=== PATIENT | female | born 1940 | race Caucasian/White ===

== ENCOUNTER → 2017-01-13 | Outpatient (CLI) | payer OTHER ==
[~2017-01-13] MED LIST: ACTOPLUS MET 11 EAC1 PO; ASPIR 8181 MG PO; ATORVASTATIN CA40 MG PO; CLONAZEPAM 1 MG1 M1 PO; COZAAR 50 MG TA50 M2 PO; DULOXETINE HCL60 MG PO; HYDROCHLOROTHIA25 M1 PO; METFORMIN HCL500 MG PO; SIMVASTATIN40 MG PO; VITAMIN D31000 UNI1 PO
--- NOTE | ~2017-01-13 | CNG ---
[facility] [place] [address] CYTO-NONGYN REPORT PROCEDURE Name: ISIAH BOOTH Room #: REG [facility] M..#: [id number] Admission: 01/13/17 Date of : 42 Discharge: Report #: [id number] Path Case #: [id number] CYTOPATHOLOGY REPORT COLLECTION DATE: 01/13/2017 RECEIVED DATE: 01/13/2017 SUBMITTING PHYS: Dr. Tru Aceves OTHER PHYS: Dr. Nancy Dent CLINICAL HISTORY: Left thyroid nodule. SPECIMEN(S) RECEIVED: A.Fine needle aspiration, Left thyroid * * * * * * * * * * * * FINAL DIAGNOSIS: A. Thyroid, left thyroid, fine needle aspiration: [place] CATEGORY III. FOLLICULAR LESION OF UNDETERMINED SIGNIFICANCE. (PLEASE SEE COMMENT) COMMENT: Examination shows variably cellular fine needle aspirate of the left thyroid. Few smears show abundant watery colloid with others show numerous microfollicles and dense colloid. Due to this variability, this specimen is rendered a follicular lesion of undetermined significance. The lesion may represent a cellular adenomatoid nodule or a follicular adenoma or a partially sampled malignant lesion. The concurrent biopsy tissue ([id number]) showed tightly packed microfollicles with occasional pseudoinclusions. Sample represents a minute portion of a larger lesion and may not be financial services sales representative. The cytology aspirate smears and the biopsy tissue show abundant sampling bias. Correlate clinically and follow up as indicated. Co-review: Dr. Hunter Teresa. (IUV:csd; d/t: 01/14/2017) PATHOLOGIST: Idania Brooks M.D. REPORT ELECTRONICALLY SIGNED BY: Idania Brooks M.D. DATE/TIME: 01/14/2017 16:05 * * * * * * * * * * * * GROSS PATHOLOGY: A. Fine needle aspiration, Left thyroid: The specimen is labeled "Isiah Booth" and consists of four fixed slides, four air dried slides. Thirty mL of clear colorless fluid in CytoLyt from the needle rinse is also submitted and One ThinPrep slide was prepared from this material. (clt 01.13.2017) [facility] [place] [address] CYTO-NONGYN REPORT PROCEDURE Name: ISIAH BOOTH Room #: REG [facility] Meron#: [id number] Admission: 01/13/17 Date of : 42 Discharge: Report #: [id number] Path Case #: [id number] ORACLE BPM DEVELOPER(S): RATNA Artis(ASCP) INITIAL CPT CODE(S): A; 97538 Professional services performed by [facility] at [facility] [address] [place] [address] [facility] by [facility] at [address] [place] [address]., [address], [place] [address]. [facility] [address] [place] [address], [address] [place] [address] PHONE: [phone] DIRECTOR: Mayco Marcos M.D. * * * END OF REPORT * * *
--- NOTE | ~2017-01-13 | S ---
[facility] [place] [address] SURGICAL PATH RPT PROCEDURE Name: ISIAH BOOTH Room #: REG [facility] M..#: [id number] Admission: 01/13/17 Date of : 42 Discharge: Report #: [id number] Path Case #: [id number] PATHOLOGY REPORT COLLECTION DATE: 01/13/2017 RECEIVED DATE: 01/13/2017 SUBMITTING PHYS: Dr. Tru Aceves OTHER PHYS: Dr. Nancy Dent SPECIMEN(S) RECEIVED: A.Left thyroid FNA/bx * * * * * * * * * * * * FINAL DIAGNOSIS: Thyroid, left thyroid nodule, needle core biopsy: - FOLLICULAR LESION WITH MOSTLY MICROFOLLICLES AND RARE PSEUDOINCLUSIONS. (SEE COMMENT) COMMENT: Examination shows a tightly packed follicular lesion with few macrofollicles and numerous microfollicles (approximately 70%). Rare pseudoinclusions are identified within the follicular cells. Other nuclear features of papillary thyroid carcinoma are not seen. The concurrent cytology ([id number]) showed features of an adenomatoid nodule in most smears with the exception of a few. These smears showed some dense colloid with follicular cells arranged in microfollicles. This is likely due to sampling. The differential diagnosis includes a cellular adenomatoid nodule with reactive changes or microfollicular adenoma or a partially sampled malignancy. Co-review: Dr. Hunter Teresa. Please note sample represents a minute portion of a larger lesion and may not be customer retention representative. Correlate clinically and follow up as indicated. (IUV:csd; d/t: 01/14/2017) PATHOLOGIST: Idania Brooks M.D. REPORT ELECTRONICALLY SIGNED BY: Idania Brooks M.D. DATE/TIME: 01/14/2017 13:39 * * * * * * * * * * * * GROSS PATHOLOGY: Received in formalin labeled "Isiah Booth, left thyroid biopsy," are 2 distinct needle cores of macias soft tissue ranging from 0.8 to 1.0 cm in length, which are submitted entirely in cassette A1. (KAH; 01/13/2017) [address] [address] SURGICAL PATH RPT PROCEDURE Name: ISIAH BOOTH Room #: REG KEYON Miramontes.#: [id number] Admission: 01/13/17 Date of : 42 Discharge: Report #: [id number] Path Case #: [id number] CLINICAL HISTORY: Left thyroid nodule INITIAL CPT CODE(S): A; 82494 Professional services performed by [facility] at [address], [place] [address] Technical services performed by [facility] at [address] [place] [address]. [facility] [address] [place] [address] PHONE: [phone] DIRECTOR: Mayco Marcos M.D. * * * END OF REPORT * * *
== END | disposition home or self-care (01) ==
LOC: ULTRA 02:09
DX: E04.1 Nontoxic single thyroid nodule (principal)

== ENCOUNTER → 2018-01-24 | Outpatient (CLI) | payer OTHER | LOC: ULTRA 07:36 | DX: E04.1 Nontoxic single thyroid nodule (principal); D44.0 Neoplasm of uncertain behavior of thyroid gland ==

== ENCOUNTER → 2019-06-14 | Outpatient (CLI) | payer OTHER | LOC: CAT 10:09 | DX: I67.82 Cerebral ischemia (principal); R90.82 White matter disease, unspecified ==

== ENCOUNTER → 2019-10-13 | Outpatient (CLI) | payer OTHER | LOC: CAT 07:45 | DX: R91.1 Solitary pulmonary nodule (principal); R91.8 Other nonspecific abnormal finding of lung field; M25.78 Osteophyte, vertebrae; J98.4 Other disorders of lung; J98.11 Atelectasis ==

== ENCOUNTER → 2020-04-17 | Outpatient (CLI) | payer OTHER | LOC: CAT 13:39 | PROVIDERS: ATTEND Pediatrics | DX: R91.1 Solitary pulmonary nodule (principal); M47.9 Spondylosis, unspecified; Z90.49 Acquired absence of other specified parts of digestive tract ==